=== PATIENT | female | born 1970 | race Caucasian/White ===

== ENCOUNTER 2022-10-06 15:40 | Emergency (ER) | payer OTHER ==
[~2022-10-06] VITALS: Ht 172.7 cm; Wt 72.6 kg
[2022-10-06] MEDS ORDERED: HYDROCODONE/APAP 5MG-325MG TAB ONE ×2 (16:40→16:41)
[2022-10-06] MEDS ORDERED: PREDNISONE 20 MG TAB ONE (16:42)
[2022-10-06] MEDS ORDERED: CYCLOBENZAPRINE HCL 10 MG TAB ONE (16:42)
[2022-10-06] MEDS ORDERED: CYCLOBENZAPRINE HCL 10 MG TAB PO ONE (16:45)
[2022-10-06] MEDS ORDERED: PREDNISONE 20 MG TAB PO ONE (16:45)
[2022-10-06] MEDS ORDERED: HYDROCODONE/APAP 5MG-325MG TAB PO ONE (16:45)
[2022-10-06] MEDS ORDERED: CYCLOBENZAPRINE10 MG PO (16:49)
[2022-10-06] MEDS ORDERED: PREDNISONE50 MG PO (16:49)
[2022-10-06] MEDS ORDERED: HYDROCODON-ACE1 EA12 PO (16:51)
== END 2022-10-06 17:21 | disposition home or self-care (01) ==
LOC: FSED 15:57
DX: M54.12 Radiculopathy, cervical region (principal); M79.622 Pain in left upper arm
CPT/HCPCS: 99283; J7512